=== PATIENT | male | born 1955 | race Caucasian/White ===

== ENCOUNTER 2018-01-26 07:48 | Day surgery (SDC) | payer MEDICARE ==
[~2018-01-26 07:48] MED LIST: EPINEPHrine 1 MG/ML 30 ML MDV SCH; Lactated Ringers 1,000 ML IV SCH; Lidocaine 1% 4 ML ONE; Lidocaine 1%/Sod Bicarbonate in NS 8.4% 1 ML Syringe IDERM PRN; Midazolam 1 MG/ML 2 ML SDV ONE; Ondansetron 4 MG/2 ML SDV ONE; Propofol 200 MG/20 ML SDV ONE; Sodium Chloride 0.9% 10 ML Syringe FLUSH PRN; fentaNYL 250 MCG/5 ML SDV ONE
[2018-01-26] MEDS ORDERED: ceFAZolin 1 GM Vial ONE (07:56)
[2018-01-26] MEDS ORDERED: Bupivacaine 0.25% 30 ML SDV ONE ×2 (08:08→10:15)
--- NOTE | 2018-01-26 08:10 | PCM.PREANE ---
Preanesthetic Assessment - Procedure Proposed Procedure: right knee video arthroscopy with loose body removal - Anesthesia/Transfusion/Family Hx Anesthesia History: Prior Anesthesia Without Reaction Family History of Anesthesia Reaction: No Transfusion History: No Prior Transfusion(s) - Review of Systems General: No Symptoms Pulmonary: No Symptoms Cardiovascular: No Symptoms Gastrointestinal: No Symptoms Neurological: Seizure (diagnosed 12 years ago- none for 1.5 years) Other: Reports: Anxiety (denies) - Physical Assessment NPO Status Date: 01/25/18 NPO Status Time: 21:00 Pulse: 43 O2 Sat by Pulse Oximetry: 100 Respiratory Rate: 16 Blood Pressure: 148/78 Temperature: 97.7 F Height: 6 ft Weight: 74 kg ASA Class: 3 Mental Status: Alert & Oriented x3 Airway Class: Mallampati = 1 Dentition: Reports: Broken Tooth/Teeth, Missing Tooth/Teeth, Caries Thyro-Mental Finger Breadths: 3 Mouth Opening Finger Breadths: 3 ROM/Head Extension: Full Lungs: Clear to Auscultation, Normal Respiratory Effort Cardiovascular: Regular Rate, Bradycardia - Lab Values: Laboratory Last Values MRSA (PCR) Negative 01/17/18 08:40 - Allergies Allergies/Adverse Reactions: Allergies Allergy/AdvReac Type Severity Reaction Status Date / Time No Known Allergies Allergy Verified 01/25/18 13:57 - Blood Blood Available: No - Acknowledgements Anesthesia Type Planned: General Anesthesia Pt an Appropriate Candidate for the Planned Anesthesia: Yes Alternatives and Risks of Anesthesia Discussed w Pt/Guardian: Yes Pt/Guardian Understands and Agrees with Anesthesia Plan: Yes PreAnesthesia Questionnaire HEENT History: Reports: Impaired Vision, Other (See Below) Other HEENT History: uses reading glasses Cardiovascular History: Reports: CAD, High Cholesterol, Stents, Other (See Below ) Other Cardiovascular History: bradycardia Respiratory History: Reports: COPD Gastrointestinal History: Reports: Other (See Below) Other Gastrointestinal History: inguinal hernia Genitourinary History: Reports: BPH [employer] History: Reports: None Musculoskeletal History: Reports: Back Pain, Chronic (pain better after surgery) , Osteoarthritis, Other (See Below) Other Musculoskeletal History: back pain, lumbago, restless leg syndrome, reynauds Neurological History: Reports: Seizure, Other (See Below) Other Neuro History: EPILEPSY, convulsions, mild cognitive disorder, back surgery of L4L5 Psychiatric History: Reports: Anxiety Endocrine/Metabolic History: Reports: Other (See Below) Other Endocrine/Metabolic History: elevated blood sugar Hematologic History: Reports: None Immunologic History: Reports: None Oncologic (Cancer) History: Reports: None Dermatologic History: Reports: None - Past Surgical History HEENT Surgical History: Reports: None Cardiovascular Surgical History: Reports: None Respiratory Surgical History: Reports: None GI Surgical History: Reports: Colonoscopy Female Surgical History: Reports: None Male Surgical History: Reports: None Endocrine Surgical History: Reports: None Neurological Surgical History: Reports: Other (See Below) (back surgery) Oncologic Surgical History: Reports: None Dermatological Surgical History: Reports: None - SUBSTANCE USE Smoking Status *Q: Current Every Day Smoker Tobacco Use Within Last Twelve Months: Cigarettes Second Hand Smoke Exposure: Yes Days Per Week of Alcohol Use: 0 Recreational Drug Use History: No - HOME MEDS Home Medications: Home Meds levETIRAcetam [Keppra XR] 1,000 mg PO BID 12/24/14 [History] ALPRAZolam [Alprazolam] 0.5 mg PO TID PRN 01/25/18 [History] Multivitamin [Daily Multiple Vitamin] 1 tab PO DAILY 01/25/18 [History] Rosuvastatin Calcium 40 mg PO DAILY 01/25/18 [History] carBAMazepine [Carbamazepine] 400 mg PO QAM 01/25/18 [History] carBAMazepine [Carbamazepine] 600 mg PO QPM 01/25/18 [History] Acetaminophen/HYDROcodone [[place] 325-5 MG] 1 - 2 tab PO Q6H PRN #20 tablet 01/26 [Rx] Aspirin 325 mg PO BID #84 tab 01/26/18 [Rx] - CURRENT (IN HOUSE) MEDS Current Meds: Current Medications Epinephrine HCl (Adrenalin) 3 mg .XX ASDIRECTED KATLYN Stop: 01/26/18 12:00 Lactated Ringer's (Ringers, Lactated) 1,000 mls @ 125 mls/hr IV ASDIRECTED KATLYN Stop: 01/26/18 23:00 Lidocaine/Sodium Bicarbonate (Buffered Lidocaine 1% In Ns 8.4%) 0.25 ml IDERM ONETIME PRN PRN Reason: Prior to IV Start Stop: 01/26/18 18:00 Sodium Chloride (Saline Flush) 10 ml FLUSH ASDIRECTED PRN PRN Reason: Keep Vein Open Stop: 01/26/18 18:00 Discontinued Medications Cefazolin Sodium (Ancef) Confirm Administered Dose 2 gm .ROUTE .STK-MED ONE Stop: 01/26/18 07:57 Fentanyl (Sublimaze) Confirm Administered Dose 250 mcg .ROUTE .STK-MED ONE Stop: 01/26/18 07:25 Lidocaine HCl (Xylocaine-Mpf 1%) Confirm Administered Dose 4 mls @ as directed .ROUTE .STK-MED ONE Stop: 01/26/18 07:24 Midazolam HCl (Versed 1 Mg/Ml) Confirm Administered Dose 2 mg .ROUTE .STK-MED ONE Stop: 01/26/18 07:25 Ondansetron HCl (Zofran) Confirm Administered Dose 4 mg .ROUTE .STK-MED ONE Stop: 01/26/18 07:24 Propofol (Diprivan 20 Ml) Confirm Administered Dose 200 mg .ROUTE .STK-MED ONE Stop: 01/26/18 07:25
[2018-01-26] MEDS ORDERED: Albuterol 0.083% 2.5 MG/3 ML Neb Soln NEB ONE (09:30)
[2018-01-26] MEDS ORDERED: Propofol 200 MG/20 ML SDV ONE (09:36)
[2018-01-26] MEDS ORDERED: fentaNYL 100 MCG/2 ML SDV IVPUSH PRN (09:45)
[2018-01-26] MEDS ORDERED: Ondansetron 4 MG/2 ML SDV IVPUSH PRN (09:45)
[2018-01-26] MEDS ORDERED: Meperidine 50 MG/ML Vial IVPUSH PRN (09:45)
[2018-01-26] MEDS ORDERED: HYDROmorphone 0.5 MG/0.5 ML Syringe IVPUSH PRN (09:45)
[2018-01-26] MEDS ORDERED: ePHEDrine/Normal Saline 25 MG/5 ML Syringe ONE (09:53)
[2018-01-26] MEDS ORDERED: Lactated Ringers 1,000 ML ONE (10:06)
[2018-01-26] MEDS ORDERED: fentaNYL 100 MCG/2 ML SDV ONE (10:12)
[2018-01-26] MEDS ORDERED: Triamcinolone Acetonide 40 MG/ML 1 ML MDV ONE (10:15)
--- NOTE | 2018-01-26 10:38 | PCM.POSTAN ---
POST ANESTHESIA ASSESSMENT - MENTAL STATUS Mental Status: Somnolent - VITAL SIGNS Pulse Rate: 55 SaO2: 97 Resp Rate: 8 Blood Pressure: 148/76 Temperature: 97.7 F - RESPIRATORY Respiratory Status: Respiratory Rate WNL, Airway Patent, O2 Saturation Stable, Supplemental Oxygen (oral airway) - CARDIOVASCULAR CV Status: Pulse Rate WNL, Blood Pressure Stable - GASTROINTESTINAL GI Status: No Symptoms - PAIN Pain Score: 0 - POST OP HYDRATION Hydration Status: Adequate & Stable
--- NOTE | 2018-01-26 12:48 | PCM48HPAN ---
Post Anesthesia Note - EVALUATION WITHIN 48HRS OF ANESTHETIC Vital Signs in Normal Range: Yes Patient Participated in Evaluation: Yes Respiratory Function Stable: Yes Airway Patent: Yes Cardiovascular Function Stable: Yes Hydration Status Stable: Yes Pain Control Satisfactory: Yes Nausea and Vomiting Control Satisfactory: Yes Mental Status Recovered: Yes (no complaints) Resp Rate: 16
[2018-01-26 13:19] VITALS: BP 132/79
--- NOTE | 2018-02-10 09:44 | PCM.OPNOTE ---
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
--- NOTE | 2018-02-10 10:59 | OR ---
DATE OF OPERATION: 01/26/2018 SURGEON: Remigio Ochoa MD OPERATION PERFORMED: Right knee video arthroscopy with loose body removal and partial medial meniscectomy. PREOPERATIVE DIAGNOSIS: Right knee loose body with osteoarthrosis. 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 ANESTHESIA: General LMA with local. ANESTHESIA PROVIDER: Michel Grimaldo CRNA [employer]INTENANCE SUPERVISOR: Mary Sesay PA-C ESTIMATED BLOOD LOSS: Less than 5 mL. COMPLICATIONS: None. CONDITION: Stable. DESCRIPTION OF PROCEDURE: The patient was identified in the preop holding area where the proper site was marked and identified by the surgeon. The patient was taken back to the operative theater where, after adequate anesthesia, the patient's left lower extremity was placed in a well-leg landers. The right lower extremity was placed in a C-clamp landers after a nonsterile tourniquet was applied. The foot of the bed was then lowered. The right lower extremity was then sterilely prepped and draped in the usual sterile fashion. OR time-out was performed. The patient received 2 g of IV Ancef. At this time, the right lower extremity was exsanguinated and tourniquet was insufflated to 300 mmHg. A standard anterolateral portal incision was made, and the scope trocar was introduced. The patellofemoral joint showed grade 1 chondromalacia. There was no loose foreign body in the lateral gutter. At this time, attention was turned to the medial gutter. There was noted to be a small rim tear of the medial meniscus that was entrapped in the medial gutter. At this time, this was resected out, and a partial medial meniscectomy of the partial rim tear was done at this time. The rest of the meniscus was fully intact. There was noted to be a large area of grade 4 chondromalacia of the medial tibial plateau as well as the medial femoral condyle. At this time, I did remove loose cartilage fragments at this time as well from the medial compartment. Attention was turned to the notch. The ACL was found to be intact in the notch. There was grade 1-2 chondromalacia of the lateral femoral condyle and lateral tibial plateau as well. The meniscus did have some fraying, and this was trimmed at this time. At this time, it was decided that all loose bodies were removed. Excess saline was removed from the knee. A 3-0 nylon simple suture was used for closure of the portal incisions, and the patient had a sterile soft dressing and sent to the PACU in stable condition. YUDI /[id number]
== END 2018-01-26 12:50 | disposition home or self-care (01) ==
LOC: JD.SDS 07:48
PROVIDERS: ATTEND Orthopaedic Surgery
DX: M23.41 Loose body in knee, right knee (principal); M22.41 Chondromalacia patellae, right knee; M19.171 Post-traumatic osteoarthritis, right ankle and foot; E78.2 Mixed hyperlipidemia; I25.119 Atherosclerotic heart disease of native coronary artery with unspecified angina pectoris; J44.9 Chronic obstructive pulmonary disease, unspecified; G25.81 Restless legs syndrome; F41.9 Anxiety disorder, unspecified; F17.210 Nicotine dependence, cigarettes, uncomplicated; Z79.82 Long term (current) use of aspirin; Z79.899 Other long term (current) drug therapy
CPT/HCPCS: 29881; 87641; 94640; J0171; J0690; J2250; J2405; J2704; J3010; J3301; J3490; J7050; J7120; 01400; J2001

== ENCOUNTER 2023-09-18 07:15 | Emergency (ER) | payer MEDICARE, BC ==
[2023-09-18 07:24] VITALS: BP 149/99; PULSE 71
[2023-09-18] MEDS ORDERED: Sodium Chloride 0.9% 10 ML Syringe FLUSH PRN (07:37)
[2023-09-18 07:49] LABS: BASOPHILS ABSOLUTE AUTO 0.1 K/mm3 (0.0-0.2); BASOPHILS PERCENT AUTO 0.4 % (0.0-1.0); EOSINOPHILS PERCENT AUTO 0.1 % (0.0-6.0); HEMOGLOBIN 14.7 gm/dl (14.0-18.0); IMMATURE GRAN PERCENT AUTO 0.7 % (0.0-0.4); LYMPHOCYTES ABSOLUTE AUTO 2.3 K/mm3 (1.0-4.8); MEAN CORPUSCULAR HEMOGLOBIN 33.1 pg (28.0-32.0); MEAN CORPUSCULAR HGB CONC 34.2 g/dl (32.0-36.0); MEAN CORPUSCULAR VOLUME 96.8 fl (83.0-99.0); MEAN PLATELET VOLUME 8.8 fl (9.4-12.4); MONOCYTES ABSOLUTE AUTO 0.6 K/mm3 (0.0-0.8); NEUTROPHILS ABSOLUTE AUTO 12.1 K/mm3 (1.8-7.7); NEUTROPHILS PERCENT AUTO 79.8 % (41.0-71.0); PLATELET COUNT,PLT 196 K/mm3 (150-400); RED BLOOD CELL COUNT 4.44 M/mm3 (4.52-5.90)
[2023-09-18 08:01] LABS: A/G RATIO 1.1 (1-2); ALBUMIN 3.8 g/dl (3.4-5.0); ANION GAP 15.1 (5-15); BILIRUBIN TOTAL 0.3 mg/dL (0.2-1.0); CALCIUM 9.1 mg/dL (8.5-10.1); EST CRCL DRUG DOSING (CG) 76.52 mL/min; MAGNESIUM 1.6 mg/dL (1.8-2.4); POTASSIUM,K 4.1 mEq/L (3.5-5.1); PROTEIN TOTAL,TP 7.4 g/dl (6.4-8.2)
[2023-09-18] MEDS ORDERED: Sodium Chloride 0.9% 100 ML IV SCH (08:15)
[2023-09-18] MEDS: Iopamidol 755 Mg/ML 100 ML Bottle IVPUSH ONE (08:18)
[2023-09-18] MEDS: Alum Hydrox/Mag Hydrox/Simeth 30 ML, Lidocaine 2% 15 ML PO ONE (08:26)
[2023-09-18] MEDS: Ondansetron 4 MG/2 ML SDV IVPUSH ONE (08:28)
[2023-09-18] MEDS: Aspirin 81 MG Tab.Chew PO ONE (08:29)
[2023-09-18] MEDS: Ketorolac 30 MG/ML SDV IVPUSH ONE (08:30)
[2023-09-18] MEDS ORDERED: Naloxone 0.4 MG/ML SDV IVPUSH PRN (08:33)
[2023-09-18] MEDS: Heparin Sodium 5,000 Units/ML Vial IVPUSH ONE (08:35)
[2023-09-18] MEDS: Heparin Sodium/D5W 25,000 UNITS/500 ML BAG IV SCH (08:37)
[2023-09-18] MEDS: Morphine 2 MG/ML SYRINGE IVPUSH ONE (08:46)
[2023-09-18] MEDS: Nitroglycerin/D5W 25 MG/250 ML BOTTLE IV SCH (10:12)
[2023-09-18] MEDS: cefTRIAXone 1 GM in Sodium Chloride 0.9% 100 ML IV ONE (10:19)
== END 2023-09-18 11:00 ==
LOC: JD.ED 07:15
DX: I21.4 Non-ST elevation (NSTEMI) myocardial infarction (principal); J40 Bronchitis, not specified as acute or chronic; I25.10 Atherosclerotic heart disease of native coronary artery without angina pectoris; E78.00 Pure hypercholesterolemia, unspecified; J44.9 Chronic obstructive pulmonary disease, unspecified; Z79.899 Other long term (current) drug therapy; Z79.82 Long term (current) use of aspirin
CPT/HCPCS: 36415; 71275; 80053; 83735; 84484; 85025; 85730; 93005; 96365; 96366; 96375; 99285; A9270; J0696; J1644; J1885; J2270; J2305; J2405; J3490; Q9967

== ENCOUNTER 2025-05-07 07:49 | Day surgery (SDC) | payer MEDICARE, BC ==
[~2025-05-07 07:49] MED LIST changes: -EPINEPHrine 1 MG/ML 30 ML MDV SCH; -Lactated Ringers 1,000 ML IV SCH; -Lidocaine 1% 4 ML ONE; -Lidocaine 1%/Sod Bicarbonate in NS 8.4% 1 ML Syringe IDERM PRN; -Midazolam 1 MG/ML 2 ML SDV ONE; -Ondansetron 4 MG/2 ML SDV ONE; -Propofol 200 MG/20 ML SDV ONE; -fentaNYL 250 MCG/5 ML SDV ONE
[2025-05-07] MEDS: Lactated Ringers 1,000 ML IV SCH (08:15)
[2025-05-07] MEDS ORDERED: Sodium Chloride 0.9% 10 ML Syringe FLUSH SCH (09:00)
[2025-05-07] MEDS ORDERED: Propofol 200 MG/20 ML SDV ONE ×2 (09:11→09:12)
[2025-05-07 10:16] VITALS: BP 104/74; PULSE 62
== END 2025-05-07 10:14 | disposition home or self-care (01) ==
LOC: JD.SDS 07:49
PROVIDERS: ATTEND Surgery
DX: Z12.11 Encounter for screening for malignant neoplasm of colon (principal); D12.3 Benign neoplasm of transverse colon; D12.5 Benign neoplasm of sigmoid colon; K64.0 First degree hemorrhoids; I25.10 Atherosclerotic heart disease of native coronary artery without angina pectoris; I11.0 Hypertensive heart disease with heart failure; I50.9 Heart failure, unspecified; K21.9 Gastro-esophageal reflux disease without esophagitis; F17.210 Nicotine dependence, cigarettes, uncomplicated; Z79.82 Long term (current) use of aspirin; Z79.899 Other long term (current) drug therapy
CPT/HCPCS: 45380; J2704; J7120; 00811; 88305